=== PATIENT | male | born 1980 | race Two or more races ===

== ENCOUNTER 2024-08-11 11:26 | Outpatient (CLI) | payer OTHER ==
[2024-08-11 11:41] LABS: Urine Bacteria None Seen /hpf (None Seen)
[2024-08-11 11:50] LABS: Basophils # (auto) 0 10 ^3/uL (0-0.2); Basophils % (auto) 0.4 % (0.0-2.0); Eosinophils # (auto) 0.1 10 ^3/uL (0-0.8); Eosinophils % (auto) 0.9 % (0.0-7.0); Hematocrit 47.9 % (41.0-53.0); Hemoglobin 16.4 g/dL (13.5-17.5); Lymphocytes # (auto) 2.4 10 ^3/uL (0.4-5.4); Lymphocytes % (auto) 29.9 % (10.0-50.0); Mean Corpuscular Hemoglobin 30.4 pg (28.0-32.0); Mean Corpuscular Hgb Conc. 34.2 g/dL (32.0-36.0); Mean Corpuscular Volume 88.8 fL (80.0-100.0); Monocytes # (auto) 0.7 10 ^3/uL (0-1.3); Monocytes % (auto) 8.5 % (0.0-12.0); Neutrophils # (auto) 4.9 10 ^3/uL (1.6-8.6); Neutrophils % (auto) 60.3 % (37.0-80.0); Nucleated Red Blood Cells % 0.1 %; Platelet Count (auto) 241 10^3/uL (140-450); Red Blood Cells 5.39 10^6/uL (4.5-5.90); White Blood Cell 8.2 10^3/uL (4.4-10.8)
[2024-08-11 13:06] LABS: Alanine Aminotransferase 32 U/L (7-40); Alkaline Phosphatase 72 U/L (46-116); Anion Gap 9 (5-15); Calcium 9.9 mg/dL (8.7-10.4); Carbon Dioxide 26 mmol/L (20-31); Chloride 106 mmol/L (98-107); Potassium 4.1 mmol/L (3.5-5.1); Sodium 141 mmol/L (136-145); Urine Blood 1+ /uL (Negative); Urine Clarity Clear (Clear); Urine Color Yellow (Yellow); Urine Mucus FEW (None Seen); Urine Protein, UAD TRACE (Negative); Urine Specific Gravity 1.029 (1.001-1.035); Urine Squamous Epithelial Cell FEW /hpf (<5); Urine Urobilinogen Normal (Negative); Urine WBC 1 /HPF (0-3); Urine pH 5.5 (5.0-9.0)
[2024-08-11 13:07] LABS: BUN/Creatinine Ratio 8.5 (10.0-20.0); Glucose 93 mg/dL (74-106); Total Protein 7.5 g/dL (5.7-8.2); Triglycerides 99 mg/dL (< 150)
[2024-08-11 13:08] LABS: Albumin 4.6 g/dL (3.2-4.8); Aspartate Aminotransferase 25 U/L (<34)
[2024-08-11 13:09] LABS: Bilirubin, Total 0.4 mg/dL (0.2-1.0); Cholesterol 172 mg/dL (< 200)
[2024-08-11 13:11] LABS: HDL Cholesterol 35 mg/dL (40-59)
[2024-08-11 13:12] LABS: Blood Urea Nitrogen 8 mg/dL (9-23); LDL Cholesterol 133 mg/dL (< 100)
== END 2024-08-11 17:00 | disposition home or self-care (01) ==
LOC: LAB 11:26
PROVIDERS: ATTEND Internal Medicine
DX: E66.01 Morbid (severe) obesity due to excess calories (principal); Z00.00 Encounter for general adult medical examination without abnormal findings; Z83.3 Family history of diabetes mellitus
CPT/HCPCS: 36415; 80053; 80061; 81001; 82607; 83036; 84443; 85025

== ENCOUNTER 2024-11-11 15:36 | Outpatient (CLI) | payer OTHER ==
[2024-11-11 16:04] LABS: Urine Protein, UAD Negative (Negative)
[2024-11-11 16:12] LABS: Microalb/Creat Ratio, Urine < 3.0
[2024-11-11 16:14] LABS: Triglycerides 103 mg/dL (< 150)
[2024-11-11 16:16] LABS: Cholesterol 177 mg/dL (< 200); HDL Cholesterol 35 mg/dL (40-59)
== END 2024-11-14 17:00 | disposition home or self-care (01) ==
LOC: LAB 15:36
PROVIDERS: ATTEND Internal Medicine
DX: E78.5 Hyperlipidemia, unspecified (principal); R73.03 Prediabetes; R31.9 Hematuria, unspecified
CPT/HCPCS: 36415; 80061; 81001; 82043; 82570; 83036

== ENCOUNTER 2025-02-14 11:58 | Outpatient (CLI) | payer OTHER | END 2025-02-14 17:00 | disposition home or self-care (01) | LOC: LAB 11:58 | PROVIDERS: ATTEND Internal Medicine | DX: I10 Essential (primary) hypertension (principal); E66.9 Obesity, unspecified; R73.03 Prediabetes | CPT/HCPCS: 36415; 83036 ==